=== PATIENT | female | born 1980 | race American Indian/Alaskan Native ===

== ENCOUNTER 2016-10-28 13:11 | Outpatient (CLI) | payer OTHER ==
[2016-10-28 13:54] VITALS: BP 131/70
== END 2016-10-28 15:30 | disposition home or self-care (01) ==
LOC: TRG 13:11
PROVIDERS: ATTEND Obstetrics & Gynecology
DX: O09.523 Supervision of elderly multigravida, third trimester (principal); O47.1 False labor at or after 37 completed weeks of gestation; Z3A.38 38 weeks gestation of pregnancy
CPT/HCPCS: 59025

== ENCOUNTER 2016-10-29 01:27 | Inpatient (IN) | payer OTHER ==
[2016-10-29] MEDS ORDERED: POLYCILLIN/NS 2 GM/100 ML 2 GM/100 ML BAG IV ONE ×2 (02:00→02:04)
[2016-10-29] MEDS ORDERED: LACTATED RINGERS 1,000 ML ONE (02:01)
[2016-10-29] MEDS ORDERED: ePHEDrine SULFATE IV PRN ×2 (02:04→03:41)
[2016-10-29] MEDS ORDERED: MINERAL OIL PO PRN (02:04)
[2016-10-29] MEDS ORDERED: BRETHINE IVP PRN (02:04)
[2016-10-29] MEDS ORDERED: XYLOCAINE 2% INFILTRATI ONE (02:04)
[2016-10-29] MEDS ORDERED: SUBLIMAZE IV PRN (02:04)
[2016-10-29] MEDS ORDERED: BRETHINE SUB-Q PRN (02:04)
[2016-10-29 02:26] LABS: Hematocrit 36.7 % (30.3-42.9); Hemoglobin 11.5 gm/dl (10.1-14.3); Mean Corpuscular HGB Conc 31 % (30-34); Mean Corpuscular Volume 75 fl (79-97); Platelet Count 227 K/mm3 (140-440); Red Blood Count 4.89 M/mm3 (3.65-5.03); Red Cell Distribution Width 14.9 % (13.2-15.2); White Blood Count 11.9 K/mm3 (4.5-11.0)
[2016-10-29 02:45] LABS: Mean Corpuscular Hemoglobin 24 pg (28-32)
[2016-10-29] MEDS ORDERED: ePHEDrine SULFATE ONE (02:52)
[2016-10-29] MEDS ORDERED: PITOCin/NS 20 UNIT/1000ML DRIP 20 UNITS/1,000 ML BAG IV SCH (03:00)
[2016-10-29] MEDS ORDERED: LACTATED RINGERS 1,000 ML IV SCH (03:00)
[2016-10-29] MEDS ORDERED: NARCAN 2 MG/2 ML IV PRN (03:41)
--- NOTE | 2016-10-29 03:41 | Anesthesia Consultation ---
Anesthesia Consult and Med Hx Date of service: 10/29/16 - Airway Anesthetic Teeth Evaluation: Good ROM Head & Neck: Adequate Mental/Hyoid Distance: Adequate Mallampati Class: Class II Intubation Access Assessment: Good - Pulmonary Exam CTA: Yes - Cardiac Exam Cardiac Exam: No Murmur - Pre-Operative Health Status ASA Pre-Surgery Classification: ASA2 Proposed Anesthetic Plan: Epidural - Pulmonary Hx Asthma: No COPD: No Hx Pneumonia: No - Cardiovascular System Hx Hypertension: No - Central Nervous System Hx Seizures: No Hx Psychiatric Problems: No - Endocrine Hx Renal Disease: No Hx End Stage Renal Disease: No Hx Hypothyroidism: No Hx Hyperthyroidism: No - Hematic Hx Anemia: No Hx Sickle Cell Disease: No - Other Systems Hx Alcohol Use: No
[2016-10-29] MEDS ORDERED: fentaNYL-BUPIV 2 MCG/ML-0.125% 200 MCG/100 ML BAG EPIDURAL SCH (04:00)
--- NOTE | 2016-10-29 04:01 | Procedure Note ---
OB Delivery Note - Delivery Date of Delivery: 10/29/16 Surgeon: AMY ALONSO Estimated blood loss: 200cc - Vaginal Delivery presentation: vertex Delivery position: OA Intrapartum events: precipitous labor- <3hr Delivery induction: none Delivery monitor: external FHT, external uterine Route of delivery: Delivery placenta: spontaneous Delivery cord: 3 umbilical vessels Delivery laceration: none Anesthesia: none - Infant A at 1 minute: 9 at 5 minutes: 9 Infant Gender: Female (time of delivery was 3:47 AM, infant weight 7 lbs. 0 oz. or 3186 g)
--- NOTE | 2016-10-29 04:05 | History and Physical Report ---
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 denies: smoking, alcohol abuse, prescription drug abuse, IV drug use - Obstetrical History Expected Date of Delivery: 11/06/16 Actual Gestation: 38 Week(s) 6 Day(s) : 4 Para: 4 Medications and Allergies Allergies Allergy/AdvReac Type Severity Reaction Status Date / Time No Known Allergies Allergy Unverified 04/25/13 17:54 Home Medications Medication Instructions Recorded Confirmed Last Taken Type Vit#96/Ferrous Fum/FA 1 each PO QDAY 04/26/13 04/26/13 04/25/13 08:00 History [ Tablet] 1 tab Active Meds: Active Medications Fentanyl (Sublimaze) 100 mcg IV Q2H PRN PRN Reason: Labor Pain Last Admin: 10/29/16 02:20 Dose: 100 mcg Lactated Ringer's (Lactated Ringers) 1,000 mls @ 125 mls/hr IV DIRECT FEROZ Oxytocin/Sodium Chloride (Pitocin/Ns 20 Unit/1000ml Drip) 20 units in 1,000 mls @ 125 mls/hr IV DIRECT FEROZ Ampicillin Sodium (Polycillin/Ns 1 Gm/50 Ml) 1 gm in 50 mls @ 100 mls/hr IV Q4HR FEROZ PRN Reason: Protocol Fentanyl/Bupivacaine/Sodium Chlor (Fentanyl-Bupiv 2 Mcg/Ml-0.125%) 200 mcg in 100 mls @ 12 mls/hr EPIDURAL TITR FEROZ PRN Reason: Protocol Mineral Oil (Mineral Oil) 30 ml PO QHS PRN PRN Reason: Constipation Review of Systems Constitutional: no fever, no chills, no sweats Cardiovascular: no chest pain, no orthopnea, no palpitations, no syncope, no lightheadedness, no shortness of breath, no dyspnea on exertion, no paroxysmal nocturnal dyspnea, no high blood pressure Respiratory: no cough with sputum, no shortness of breath, no dyspnea on exertion Gastrointestinal: no abdominal pain, no nausea, no vomiting Genitourinary: no vaginal bleeding - Vital Signs Vital signs: Vital Signs Pulse BP Pulse Ox 88 130/67 97 10/29/16 01:38 10/29/16 01:38 10/29/16 01:38 Temp Pulse Resp BP Pulse Ox 98.1 F 95 H 16 109/57 100 10/29/16 02:23 10/29/16 03:45 10/29/16 02:23 10/29/16 03:45 10/29/16 03:43 - Physical Exam Abdomen: Positive: normal appearance, soft. Negative: tenderness Genitourinary (Female): Positive: normal external genitalia Uterus: Positive: enlarged (but firm and well contracted). Negative: tender Results Result Diagrams: 10/29/16 02:22 Abnormal lab results 10/29/16 Range/Units 02:22 WBC 11.9 H (4.5-11.0) K/mm3 MCV 75 L (79-97) fl MCH 24 L (28-32) pg All other labs normal. Assessment and Plan PPD# 0 s/p PPT delivery -Doing well P: -Routine care -Anticipate discharge in 24-48 hours - Patient Problems (1) (normal spontaneous vaginal delivery) Current Visit: Yes Status: Acute (2) 38 weeks gestation of Current Visit: Yes Status: Acute
[2016-10-29] MEDS ORDERED: TYLENOL PO PRN (04:06)
[2016-10-29] MEDS ORDERED: LANSINOH TP PRN (04:06)
[2016-10-29] MEDS ORDERED: TUCKS PAD TP PRN (04:06)
[2016-10-29] MEDS ORDERED: DULCOLAX PR PRN (04:06)
[2016-10-29] MEDS ORDERED: PHENERGAN PO PRN (04:06)
[2016-10-29] MEDS ORDERED: ZOFRAN IV PRN (04:06)
[2016-10-29] MEDS ORDERED: BENADRYL PO PRN (04:06)
[2016-10-29] MEDS ORDERED: ANUCORT-HC PR PRN (04:06)
[2016-10-29] MEDS ORDERED: PHENERGAN PR PRN (04:06)
[2016-10-29] MEDS ORDERED: MILK OF MAGNESIA PO PRN (04:06)
[2016-10-29] MEDS ORDERED: SODIUM CHLORIDE FLUSH SYRINGE 10 ML IV PRN (05:00)
[2016-10-29] MEDS ORDERED: POLYCILLIN/NS 1 GM/50 ML 1 GM/50 ML BAG IV SCH (06:00)
[2016-10-29] MEDS: MOTRIN PO SCH ×3 (09:12→19:12)
[2016-10-29] MEDS: PRENATAL VITAMIN PO SCH (12:00)
[2016-10-29] MEDS: COLACE PO SCH ×2 (12:00→20:48)
[2016-10-29] MEDS: NORCO 5/325 PO PRN ×2 (12:05→20:48)
[2016-10-29 16:52] LABS: Hematocrit 34.5 % (30.3-42.9); Hemoglobin 10.9 gm/dl (10.1-14.3)
[2016-10-29] MEDS: SENOKOT S PO SCH (20:48)
[2016-10-30] MEDS: MOTRIN PO SCH ×4 (00:52→18:43)
[2016-10-30] MEDS ORDERED: BOOSTRIX IM ONE (06:00)
--- NOTE | 2016-10-30 08:45 | Progress Note ---
Assessment and Plan A: PPD #1 - stable P: Plan discharge home tomorrow Subjective - Subjective Date of service: 10/30/16 Principal diagnosis: Patient reports: appetite normal, pain well controlled [place]: doing well Objective - Vital Signs Latest vital signs: Vital Signs Temp Pulse Resp BP 10/30/16 00:23 97.8 F 73 20 115/58 10/29/16 16:30 97.7 F 73 19 105/64 10/29/16 12:37 97.9 F 85 17 92/67 Intake and Output 10/29/16 10/30/16 10/30/16 22:59 06:59 14:59 Intake Total 120 360 Output Total 200 Balance -80 360 Intake: Oral 120 Intake, Free Water 360 Output: Urine 200 Void 200 Other: Total, Intake Amount 120 Total, Output Amount 200 # Voids Void 1 - Exam Breasts: Present: deferred Cardiovascular: Present: Regular rate Lungs: Present: Clear to auscultation Abdomen: Present: soft Vulva: both: normal Uterus: Present: fundal height below umbilicus Extremities: Present: normal Deep Tendon Reflex Grade: Normal +2
--- NOTE | 2016-10-30 08:46 | Discharge Summary ---
Providers - Providers Date of Admission: 10/29/16 01:44 Date of discharge: 10/31/16 Attending physician: KENJI KRISHNAN MD Primary care physician: KENJI KRISHNAN MD Hospitalization Reason for admission: active labor Delivery: Episiotomy: none Laceration: none complications: none Discharge diagnosis: IUP at term delivered [place] baby: female Condition at discharge: Good Disposition: DC-01 TO HOME OR SELFCARE Plan - Discharge Medications Prescriptions: HYDROcodone/APAP 5-325 [[place] 5/325] 1 each PO Q6HR PRN #7 tablet PRN Reason: Pain Ibuprofen [Motrin 600 MG tab] 600 mg PO Q8H PRN #30 tablet PRN Reason: Pain Multivitamin with Iron [Multivitamins with Iron] 1 each PO DAILY #30 tablet - Provider Discharge Summary Activity: routine, no sex for 6 weeks, no heavy lifting 4 weeks, no strenuous exercise Diet: routine Instructions: routine Additional instructions: [] Smoking cessation referral if applicable(refer to patient education folder for contact #) [] Refer to [facility] Booklet Call your doctor immediately for: * Fever > 100.5 * Heavy vaginal bleeding ( >1 pad per hour) * Severe persistent headache * Shortness of breath * Reddened, hot, painful area to leg or breast * Drainage or odor from incision. * Keep incision clean and dry at all times and follow doctor's instructions regarding bathing/showering - Follow up plan Follow up: [facility], ANNIE [Provider Group] - 6 Weeks
[2016-10-30] MEDS: COLACE PO SCH (10:38)
[2016-10-30] MEDS: PRENATAL VITAMIN PO SCH (10:38)
[2016-10-31] MEDS: SENOKOT S PO SCH (00:02)
[2016-10-31] MEDS: COLACE PO SCH ×3 (00:06→10:53)
[2016-10-31] MEDS: MOTRIN PO SCH ×3 (00:06→13:20)
[2016-10-31] MEDS: NORCO 5/325 PO PRN (04:15)
[2016-10-31 09:27] VITALS: BP 98/52
[2016-10-31] MEDS: PRENATAL VITAMIN PO SCH (10:53)
[2016-10-31] MEDS ORDERED: DEPO-PROVERA (CONTRACEPTION) IM ONE (11:00)
== END 2016-10-31 15:30 | disposition home or self-care (01) | DRG 775 ==
LOC: TRG 01:27 → LD 01:44 → TRG 01:44 → OB 07:40
PROVIDERS: ADMIT Obstetrics & Gynecology; ATTEND Obstetrics & Gynecology
PROC: 10E0XZZ Delivery of Products of Conception, External Approach (ICD-10-PCS; principal; 2016-10-27)
DX: O62.3 Precipitate labor (principal); Z3A.38 38 weeks gestation of pregnancy; Z37.0 Single live birth
CPT/HCPCS: 36415; 85014; 85018; 85027; 86850; 86900; 86901; 90471; 90715; 99211; A6250; G0463; J0290; J1050; J2590; J3010; J7120